=== PATIENT | female | born 1940 | race Two or more races ===

== ENCOUNTER 2021-09-09 10:45 | Outpatient (CLI) | payer OTHER | END 2021-09-09 11:35 | disposition home or self-care (01) | LOC: ASH CLINIC 10:45 | PROVIDERS: ATTEND Emergency Medicine | DX: U07.1 COVID-19 (principal) ==

== ENCOUNTER 2024-03-08 13:14 | Emergency (ER) | payer OTHER ==
[~2024-03-08] VITALS: Ht 152.4 cm; Wt 49.9 kg
[2024-03-08] MEDS ORDERED: ATORVASTATIN CA20 MG PO (15:27)
[2024-03-08] MEDS ORDERED: TOPROL XL50 M1 PO (15:27)
[2024-03-08] MEDS ORDERED: METFORMIN HCL500 M3 PO (15:27)
[2024-03-08] MEDS ORDERED: ELIQUIS5 MG PO (15:27)
[2024-03-08] MEDS ORDERED: DEXAMETHASONE SODIUM PHOSPHATE 4 MG/ML VIAL IM STA (16:07)
[2024-03-08] MEDS ORDERED: ORPHENADRINE CITRATE 30 MG/ML AMPUL IM STA (16:08)
[2024-03-08] MEDS ORDERED: KETOROLAC TROMETHAMINE 30 MG VIAL IM STA (16:09)
[2024-03-08] MEDS ORDERED: NORFLEX100MG PO (16:15)
[2024-03-08] MEDS ORDERED: GABAPENTIN300 M2 PO (16:50)
[2024-03-08] MEDS ORDERED: KETOROLAC TROMETHAMINE 30 MG VIAL ONE (16:56)
[2024-03-08] MEDS ORDERED: ORPHENADRINE CITRATE 30 MG/ML AMPUL ONE (16:56)
[2024-03-08] MEDS ORDERED: DEXAMETHASONE SODIUM PHOSPHATE 4 MG/ML VIAL ONE (16:57)
== END 2024-03-08 17:15 | disposition home or self-care (01) ==
LOC: ER 13:16
DX: M54.50 Low back pain, unspecified (principal)
CPT/HCPCS: 96372; 99282; J1100; J1885; J2360

== ENCOUNTER 2024-03-19 13:40 | Outpatient (CLI) | payer OTHER ==
[~2024-03-19 13:40] MED LIST: ATORVASTATIN CA20 MG PO; ELIQUIS5 MG PO; GABAPENTIN300 M2 PO; METFORMIN HCL500 M3 PO; NORFLEX100MG PO; TOPROL XL50 M1 PO
== END 2024-03-19 13:50 | disposition home or self-care (01) ==
LOC: RAD 13:40
PROVIDERS: ATTEND Physical Medicine & Rehabilitation
DX: M25.571 Pain in right ankle and joints of right foot (principal)

== ENCOUNTER → 2024-09-14 | Emergency (ER) | payer OTHER ==
[~2024-09-14] VITALS: Ht 152.4 cm; Wt 45.4 kg
[~2024-09-14] MED LIST changes: +8 HOUR650 MG PO; +ACETAMINOPHEN 500 MG GEL..CAP PO STA
[2024-09-14 12:55] LABS: BASO % 0.3 % (0.1-1.2); EOS # 0.02 (0.04-0.54); EOS % 0.2 % (0.7-7.0); LYMPH # 1.19 (1.18-3.74); LYMPH % 9.8 % (19.3-53.1); MEAN PLATELET VOLUME 9.50 fl (9.4-12.4); MONO # 1.20 (0.24-0.82); MONO % 9.9 % (4.7-12.5); NEUT # 9.67 (1.56-6.13); NEUT % 79.4 % (34.0-71.1); RED CELL DISTRIBUTION WIDTH 14.1 % (11.6-14.4)
[2024-09-14 13:15] LABS: INR 1.21
[2024-09-14 13:22] LABS: ALT/SGPT 16.0 U/L (12-78); AST/SGOT 12.0 U/L (15-37); BILIRUBIN TOTAL 0.9 mg/dL (0.3-1.2); BUN CREA RATIO 16.0 (7.0-25.0); CREATININE SERUM 1.15 mg/dL (0.55-1.02); GFR 45.17; GLOBULINA 3.0 G/DL (2.4-3.5); GLUCOSE FASTING 145.0 mg/dL (65-100); OSMOLALITY SERUM 280.0 MOSM/KG (275-295)
[2024-09-14 16:11] LABS: URINE APPEARANCE Clear; URINE BILIRRUBIN Negative (NEGATIVE); URINE BLOOD Small; URINE COLOR Yellow; URINE GLUCOSE Negative (NEGATIVE); URINE KETONE Trace (NEGATIVE); URINE LEUKOCYTE Small; URINE NITRATE Negative; URINE PROTEIN Trace (NEGATIVE); URINE UROBILINOGEN 0.2 E.U./dl
[2024-09-14 16:15] LABS: URINE BACTERIA 48.0 uL (0.0-1933); URINE CAST 5.42 uL (0.0-1.40); URINE EPITHELIAL CELLS 28.2 uL (0.0-38.8); URINE RBC 17.0 uL (0.0-20.8); URINE WBC 21.8 uL (0.0-23.2)
[2024-09-14 16:45] LABS: TYPE CELLS SQUAMOUS; URINE CRYSTALS FEW /HPF; URINE MUCUS MODERATE
== END | disposition home or self-care (01) ==
LOC: ER 11:20
PROVIDERS: General Practice
DX: G89.11 Acute pain due to trauma (principal); M25.551 Pain in right hip; I48.91 Unspecified atrial fibrillation; E11.9 Type 2 diabetes mellitus without complications; Z79.84 Long term (current) use of oral hypoglycemic drugs